=== PATIENT | male | born 1985 | race Hispanic/Latino ===

== ENCOUNTER 2017-02-18 07:57 | Emergency (ER) | payer OTHER ==
[2017-02-18] MEDS ORDERED: Ketorolac Tromethamine 30 MG/ML VIAL ONE (08:18)
[2017-02-18] MEDS ORDERED: Sodium Chloride 0.9% 100 ML ONE (08:51)
[2017-02-18] MEDS ORDERED: cefTRIAXone\\ROCEPHIN 2 GM VIAL ONE (08:51)
[2017-02-18 08:52] LABS: #Basophils 0.1 thou/uL (0.0-0.2); #Lymphocytes 0.6 thou/uL (1.20-3.40); #Monocytes 0.6 thou/uL (0.11-0.59); #Neutrophils 6.7 thou/uL (1.40-6.50); %Basophils 0.9 % (0.0-1.0); %Eosinophils 0.6 % (0.0-10.0); %Monocytes 6.9 % (0.0-10.0); %Neutrophils 83.7 % (42.0-75.0); Hemoglobin 9.4 g/dL (14.0-18.0); Mean Corpuscular HGB CONC 33.3 g/dL (32.0-36.0); Mean Corpuscular Hemoglobin 29.9 pg (27.0-31.0); Mean Corpuscular Volume 89.9 fl (80.0-94.0); Mean Platelet Volume 7.9 fL (7.4-10.4); Platelet Count 184 thou/uL (130-400); RBC Distribution Width 11.9 % (11.5-14.5); Red Blood Cell (RBC) Count 3.13 mill/uL (4.70-6.10)
[2017-02-18 08:56] LABS: Lactic Acid 2.3 mmol/L (0.5-2.2)
[2017-02-18 08:59] LABS: ALT (SGPT) 31 U/L (0-55); AST (SGOT) 29 U/L (5-34); Albumin 2.5 g/dL (3.5-5.0); Alkaline Phosphatase 86 U/L (40-150); Anion Gap 18 mmol/L (10-20); BUN (Urea Nitrogen) 71 mg/dL (8.9-20.6); Bilirubin, Total 0.2 mg/dL (0.2-1.2); Calc. Creatinine Clearance 0 mL/min (70-130); Calcium 7.8 mg/dL (7.8-10.44); Carbon Dioxide 20 mmol/L (22-29); Chloride 104 mmol/L (98-107); Estimated GFR-MDRD 8; Globulin 3.5 g/dL (2.4-3.5); Glucose 97 mg/dL (70-105); Potassium 4.9 mmol/L (3.5-5.1); Sodium 137 mmol/L (136-145)
[2017-02-18 09:00] LABS: CKMB 1.6 ng/mL (0-6.6); Troponin I 0.025 ng/mL (< 0.028)
[2017-02-18] MEDS ORDERED: Azithromycin 500 MG VIAL ONE (09:00)
[2017-02-18] MEDS ORDERED: Sodium Chloride 0.9% 250 ML 250 ML ONE (09:01)
--- NOTE | 2017-02-18 09:06 | RAD ---
PORTABLE CHEST 1 VIEW: Date: 02/18/17 Time: 0810 hours HISTORY: Cough, shortness of breath, and chest pain. FINDINGS: The heart size is normal. Patchy areas of consolidation seen in the lung bell bilaterally. No pneu mothoraces or pleural effusions are seen. IMPRESSION: Pneumonia POS: [facility]
[2017-02-18] MEDS ORDERED: Sodium Chloride 0.9% 1,000 ML ONE (09:39)
[2017-02-18] MEDS ORDERED: Albuterol Sulfate 2.5 mg/0.5 ml Neb ONE (09:55)
[2017-02-18] MEDS ORDERED: Sodium Chloride For Inhalation 0.9% 3 ML NEB ONE (09:55)
[2017-02-18 10:57] LABS: Reticulocyte Count 1.8 % (0.5-1.5)
[2017-02-18 11:05] LABS: Bilirubin Negative (Negative); Blood, Urine Large (Negative); Clarity Clear (Clear); Glucose, Urine (Dipstick) Negative (Negative); Leukocyte Negative (Negative); Nitrite Negative (Negative); Protein, Urine (Dipstick) > or equal to 300 mg/dL (Neg-Trace); Specific Gravity, Urine 1.015 (1.005-1.030); Urobilinogen 0.2 mg/dL (0.2-1.0)
[2017-02-18 11:19] LABS: Bacteria/HPF None Seen HPF (None Seen); RBC/HPF GREATER THAN 50-TNTC HPF (0-3); Squamous Epithelial 0-3 HPF (0-3); WBC/HPF 0-3 HPF (0-3)
[2017-02-18 15:20] LABS: Iron 23 ug/dL (65-175); Iron Binding Capacity, Total 163 mcg/dL (261-462)
[2017-02-18 15:39] LABS: HIV (1/2) Antibody/Antigen Non-Reactive (NonReactive); HIV 1/2 INDEX 0.26 S/CO (<1.00)
[2017-02-18 15:54] LABS: Folate (Folic Acid) 1.9 ng/mL (7.0-31.4)
== END 2017-02-18 12:00 | disposition short-term general hospital (02) ==
LOC: NAV ERS 07:57
DX: J18.9 Pneumonia, unspecified organism (principal); D64.9 Anemia, unspecified; N17.9 Acute kidney failure, unspecified; A41.9 Sepsis, unspecified organism; R09.02 Hypoxemia; G40.909 Epilepsy, unspecified, not intractable, without status epilepticus; J45.909 Unspecified asthma, uncomplicated; F32.9 Major depressive disorder, single episode, unspecified; Z79.899 Other long term (current) drug therapy
CPT/HCPCS: 36415; 71010; 80053; 80185; 81001; 82553; 82607; 82746; 83540; 83550; 83605; 84484; 85025; 85046; 87040; 87389; 93005; 96361; 96365; 96367; 96375; J0456; J0696; J1885; J7050; J7611